=== PATIENT | male | born 1980 | race Caucasian/White ===

== ENCOUNTER 2024-07-19 14:06 | Emergency (ER) | payer OTHER, SELFPAY ==
[2024-07-19 14:07] VITALS: BP 135/96; PULSE 107; RESP 20; TEMP 36.8; O2SAT 97; BMI 25.7
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
[2024-07-19] MEDS: Acetaminophen 500 MG Tablet 1000 MG PO (14:34)
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
== END 2024-07-19 14:55 | disposition home or self-care (01) ==
PROVIDERS: Emergency Provider Emergency Medicine; Visit Provider Emergency Medicine
DX: S40.012A Contusion of left shoulder, initial encounter (principal); V49.40XA Driver injured in collision with unspecified motor vehicles in traffic accident, initial encounter; W22.10XA Striking against or struck by unspecified automobile airbag, initial encounter; Y92.410 Unspecified street and highway as the place of occurrence of the external cause
CPT/HCPCS: 71046; 73030; 99284